=== PATIENT | female | born 1955 | race Caucasian/White ===

== ENCOUNTER → 2019-05-18 | Outpatient (CLI) | payer OTHER ==
[2019-05-22 15:37] LABS: Stool Occult Bld Immuno 1 Negative (NEGATIVE); Stool Occult Bld Immuno 2 Negative (NEGATIVE)
== END | disposition home or self-care (01) ==
LOC: LAB 16:07 → LAB SHORT 16:07
PROVIDERS: Internal Medicine Gastroenterology
DX: Z13.818 Encounter for screening for other digestive system disorders (principal); K57.30 Diverticulosis of large intestine without perforation or abscess without bleeding; Z86.010 Personal history of colon polyps
CPT/HCPCS: G0328

== ENCOUNTER 2021-12-23 12:44 | Day surgery (SDC) | payer OTHER ==
[~2021-12-23] VITALS: Ht 160 cm; Wt 70.0 kg
[2021-12-23] MEDS ORDERED: CENTRUM SILVER1 EAC2 (13:27)
[2021-12-23] MEDS ORDERED: Nortriptyl10 MG/5 ML (13:29)
[2021-12-23] MEDS ORDERED: OXYCONTIN10 MG (13:29)
[2021-12-23] MEDS ORDERED: OMEP20ER (13:30)
[2021-12-23] MEDS ORDERED: MILN100T (13:32)
[2021-12-23] MEDS ORDERED: ATOR10 (13:33)
[2021-12-23] MEDS ORDERED: LORA.5 (13:33)
[2021-12-23] MEDS ORDERED: SERT20L (13:34)
[2021-12-23] MEDS ORDERED: METO100 (13:34)
[2021-12-23] MEDS ORDERED: OXYC10TA19 (13:34)
--- NOTE | 2021-12-23 16:27 | NUR ---
12/23/[address] WAS BROUGHT INTO THE CASE APPROX AT 1512, PT WAS NOT FALLING ASLEEP WITH THE MEDICATION THAT I WAS GIVING. SEE SEDATION RECORD FOR COMPLETE DETAILS. DR. CIFUENTES AND DR. CHUNG DIRECTED ME ON THE QUANTITY OF PROPOFOL TO BE GIVEN IF OUTSIDE THE NORMAL PARAMETERS FOR PROPOFOL AND INSTRUCTED TO GIVE OTHER MEDICATIONS. DR. CIFUENTES GAVE ALL OF THE KETAMINE, THOUGH I RECORDED IT AT THE TIME.
--- NOTE | 2021-12-23 16:56 | NUR ---
12/23/[address] VISITED WITH PT PRIOR TO DISCHARGE. RECHECKED VITALS PRIOR TO DC AND SPK WITH PT ABOUT NEEDING ANESTHESIA FOR FUTURE ENDO CASES.
== END 2021-12-23 16:30 | disposition home or self-care (01) ==
LOC: ORSCSDS 12:44
PROVIDERS: Internal Medicine Gastroenterology
PROC: 0DBH8ZX Excision of Cecum, Via Natural or Artificial Opening Endoscopic, Diagnostic (ICD-10-PCS; principal; 2021-12-23 14:30)
DX: Z12.11 Encounter for screening for malignant neoplasm of colon (principal); Z86.010 Personal history of colon polyps; K57.30 Diverticulosis of large intestine without perforation or abscess without bleeding; I10 Essential (primary) hypertension; Z79.899 Other long term (current) drug therapy; Z87.891 Personal history of nicotine dependence
CPT/HCPCS: A9270; J0330; J0461; J2250; J2405; J2704; J3010; J7120

== ENCOUNTER 2022-08-19 08:44 | Day surgery (SDC) | payer OTHER ==
[~2022-08-19] VITALS: Ht 160 cm; Wt 74.9 kg
[~2022-08-19 08:44] MED LIST: ATOR10; CENTRUM SILVER1 EAC2; DULOXETINE HCL60 M1 PO; LORA.5; LOSA50 PO; METO100; MILN100T; Nortriptyl10 MG/5 ML; OMEP20ER; OXYC10TA19; OXYCONTIN10 MG; OXYCONTIN15 MG PO; SERT20L; TIZA4 PO
--- NOTE | 2022-08-19 09:05 | NUR ---
08/19/22 0905 Radha Hannah AT 0859 PLEDGET AT 0901
== END 2022-08-19 10:20 | disposition home or self-care (01) ==
LOC: ORSCSDS 08:44
PROVIDERS: Ophthalmology
PROC: 08DJ3ZZ Extraction of Right Lens, Percutaneous Approach (ICD-10-PCS; principal; 2022-08-19 10:00)
PROC: 08923ZZ Drainage of Right Anterior Chamber, Percutaneous Approach (ICD-10-PCS; principal; 2022-08-19 10:00)
DX: H25.11 Age-related nuclear cataract, right eye (principal); Z96.1 Presence of intraocular lens; I10 Essential (primary) hypertension; H40.9 Unspecified glaucoma; K21.9 Gastro-esophageal reflux disease without esophagitis; F41.9 Anxiety disorder, unspecified; Z87.891 Personal history of nicotine dependence; Z79.899 Other long term (current) drug therapy
CPT/HCPCS: J2001; J2250; J3010; J3301; J7040; V2632